=== PATIENT | male | born 1975 | race African-American/Black ===

== ENCOUNTER → 2019-02-07 | Outpatient (CLI) | payer OTHER | LOC: COL.RAD 13:17 | DX: N43.3 Hydrocele, unspecified (principal); Z98.52 Vasectomy status ==

== ENCOUNTER → 2020-04-25 | Outpatient (CLI) | payer OTHER | LOC: BHSO 11:00 | DX: F41.1 Generalized anxiety disorder (principal) ==

== ENCOUNTER → 2020-08-11 | Outpatient (CLI) | payer OTHER | LOC: COL.RAD 10:30 | DX: M16.12 Unilateral primary osteoarthritis, left hip (principal) | CPT/HCPCS: A9585; Q9967 ==

== ENCOUNTER → 2020-11-05 | Outpatient (CLI) | payer OTHER | LOC: COL.RAD 09:45 | DX: N50.82 Scrotal pain (principal) ==